=== PATIENT | female | born 1955 | race Caucasian/White ===

== ENCOUNTER → 2016-08-11 | Outpatient (CLI) | payer BC ==
[~2016-08-11] MED LIST: ADVIN50050 INH; ALBUAER2 INH; ALPR1TAB3 PO; ANF50 PO; ATOR-26 PO; CHOL1TAB76 PO; CLC100 PO; CLMTP25 TOP; CLOB-65 EXT; CRFL PO; CYM60 PO; HYDR50CA2 PO; LAMO100T16 PO; LANS30CA12 PO; LEVO-217 PO; LIDOCAINE 5% TOP; LISI5TAB3 PO; METH10TA4 PO; OXYC7.5T78 PO; RIZA10TA18 PO; RTL20 PO; SNG10 PO; SUMA5SPR5; TIOTCAP INH; TRAZ150T64 PO; TRIA0.1C20 TOP
--- NOTE | 2016-08-12 05:57 | PAP/PSG TECHNICIAN REPORT ---
[facility] Cloth Checker Polysomnogram Report Study name: None Report date: 08/12/2016 Study date: 08/11/2016 Referring Physician: Manuel MALONE M.D. Name: NENO SIDDIQUI Interpreting Physician: Harika Malone M.D. Date of : 1955 Cloth Checker: Juan De Jesus RPSGT. Sex: Female Age: 61 StudyType: PSG PAP Weight: 181 lbs 14 INCHES Height: 61 years, Height 5' 7.5" Neck Circum: BMI: 27.93 Medications: ENDOCET 5/325 MG, FLEXERIL 5 MG, PREVACID 30 MG, LEVOXYL 50 MCG, SEROQUEL 25 MG, SINGULAIR 10 MG, COZAAR 50 MG, FLONASE, RANITIDINE HCL 300 MG, LIPITOR 80 MG, PYRIDIUM 200 MG, ADVAIR DISKUS 500-50 MCG, METHYLPHENIDATE HCL ER LA 40 MG, CARAFATE 1 GM, RISPERDAL, TRAZADONE HCL 150 MG, ALPRAZOLAM 1 MG, ZOLPIDEM TARTRATE 10 MG, CYMBALTA 60 MG, LAMICTAL 100 MG Patient History PATIENT HAD A SLEEP STUDY DONE IN 2012 AND WAS HERE FOR A BIPAP ST TITRATION. SHE HAS NOT BEEN ABLE TO WEAR HER MASK DUE TO BEING UNCOMFORTABLE AND THE MASK LEAKING TOO MUCH. SHE IS HERE TODAY FOR A BIPAP ST TITRATION AND TO FIND A BETTER MASK FIT AND PRESSURE. RM 8 Parameters Monitored NPSG: E1-M2, E2-M1, Fp1-M2, Fp2-M1, F3-M2, F4-M2, F4-M1, C3-M2, C4-M2, C4-M1, O1-M2, O2-M2, O2-M1, T3-M2, T4-M1, P3-M2, P4-M1, CHIN1, CHIN2, HR, EKG, Legs, PFLOW, SNOR, FLOW, CFLOW, Tidal Volume, THOR, ABDO, SpO2, PLTH, CPRESS, ETCO2 Wave, ETCO2, pH Sleep Architecture Sleep Stages Time at Lights Off 9:29:44 PM STAGES Time (min.) TST (%) Time at Lights On 5:29:44 AM Wake 47.5 -- Total Recording Time (TRT) 480.50 min. N1 8.0 2 Total Sleep Period (TSP) 447.5 min. N2 316.0 73 Total Sleep Time (TST) 432.5min. N3 62.5 14 Awake Time 47.5 min. REM 46.0 11 Wake after Sleep Onset 15.0 min. Sleep Efficiency (SE) 90 % Sleep Onset Latency (ABAD) 32.5 min. Number of Stage 1 Shifts None Awakenings 4 Stage Changes 38 Number of REM periods 1 REM 46.0 11 REM Latency 314.0 min. NREM 386.5 89 Body Position Analysis Supine Right Left Side Prone Vertical Total Sleep Time (min.) 480.0 0.0 0.0 0.00 0.0 0.0 Total Sleep Time (%) 100% 0% 0% 0 0% N/A% Total Sleep Time REM (min.) 46.0 0.0 0.0 None 0.0 0.0 Total Sleep Time NREM (min.) 386.5 0.0 0.0 None 0.0 0.0 Intermittent Wake (min.) 47.5 0.0 0.0 None 0.0 0.0 Total Sleep Period (%) 100% None None None None None Arousals Myoclonus (PLM) * Events Count Index Events Count Index Spontaneous 17 2 Events Awake (PLMW) 19 24.0 Respiratory 0 0.3 Events Asleep w/ Arousal (PLMA) 9 1.2 PLM 9 1 Events Asleep w/o Arousal (PLMS) 18 2.5 Snoring 2 0 Total Asleep 27 3.7 Total 28 4 Total 46 6 Respiratory Analysis * CA OA MA CH H RERA Total Count 0 0 0 0 4 1 4 Index 0.0 0.0 0.0 0 0.6 0 0.7 Mean Duration 0.0 0.0 0.0 0.00 20.1 18.6 19.8 Longest Duration 0.0 0.0 0.0 0.00 0.0 18.6 22.5 Respiratory Event Summary Total Supine ~Supine Right Left Prone REM NREM Apneas Count 0 0 N/A N/A N/A N/A 0 0 Index 0.0 0 N/A N/A N/A N/A 0 0 Hypopneas (4% Desat) Count 4 4 N/A N/A N/A N/A 1 3 Index 0.6 0.6 N/A N/A N/A N/A 1.3 0.5 Apneas & All Hypopneas Count 4 4 N/A N/A N/A N/A 1 3 Index 0.6 1 N/A N/A N/A N/A 1.3 0.5 Respiratory Events (Collision Estimator+All Hyp+RERA) Count 4 5 N/A N/A N/A N/A 1 3 Index 0.7 1 N/A N/A N/A N/A 1.3 0.6 Respiratory Related Arousal Count 0 5 N/A N/A N/A N/A 0 2 Index 0.3 0 N/A N/A N/A N/A 0 0 Snoring Analysis Supine Right Left Prone REM NREM Total Snore duration 4.4 min Snores count 274 N/A N/A N/A 79 195 274 Snore mean duration 1.0 Sec Snores index 38 N/A N/A N/A 103.0 30.3 38.0 TST with snoring (%) 1.0% Desaturation Event Summary: Minimum %SpO2 Event Count Mean/Min/Max Duration(sec.) Desaturation Index % Time In Bed > 90 4 61.3 / 42.2 / 94.4 1.4 35.3 86 - 90 0 N/A 0.0 64.6 81 - 85 0 N/A 0.0 0.1 76 - 80 0 N/A 0.0 0.0 71 - 75 0 N/A 0.0 0.0 66 - 70 0 N/A 0.0 0.0 61 - 65 0 N/A 0.0 0.0 56 - 60 0 N/A 0.0 0.0 51 - 55 0 N/A 0.0 0.0 < 50 0 N/A 0.0 0.0 Total REM NREM Awake <50% 0.0 min. 0.0 min. 0.0 min. 0.0 min. 51 - 60% 0.0 min. 0.0 min. 0.0 min. 0.0 min. 61 - 70% 0.0 min. 0.0 min. 0.0 min. 0.0 min. 71 - 80% 0.0 min. 0.0 min. 0.0 min. 0.0 min. 81 - 90% 304.8 min. 19.9 min. 262.6 min. 22.3 min. 91 - 100% 166.2 min. 26.1 min. 123.9 min. 16.2 min. Average 90 91 90 90 Minimum SpO2 84 88 84 86 Desaturation Event Index 0.5 1.3 0.3 1.3 # Desat. Events below 89% 3 N/A 2 1 Time(%) with Saturation below 89% 24.5 0.0 22.7 1.7 Time(min.) with Saturation below 89% 115.2 0.2 107.1 7.9 Time (mins) REM (mins) NREM (mins) % of TST SpO2 Below 90% 3 1 N2 40.6 SpO2 Below 88% 3 0 0 16 Heart Rate Analysis Min (bpm) Max (bpm) Average (bpm) Awake 60 88 75 NREM 57 78 65 REM 62 67 64 Overall 57 78 65 Supplemental O2 Values Minimum O2 level: None Value Start Time End Time Cloth Checker Comments Mrs. Siddiqui slept in the supine positions. No cardiac arrhythmia noted. Leg movements noted. No bruxism noted. PAP initiated at an IPAP of +8 CMH2O and an EPAP of +4 CMH2O, with a rate of 10 and up-titrated to an optimal level of: IPAP +9 CMH2O, EPAP + 4CMH20 with a rate of 10 BPM, which nearly eliminated all respiratory events and snoring. A Resmed Mirage Quattro full face size small mask was used during titration Mrs. Siddiqui awoke to use the restroom 1 time during the night. Mrs. Siddiqui stated I slept as well as I do when I am in my own bed. Supplemental oxygen was added around 12:15 am at 1l/min and was increased to 2l/min. The final report will be interpreted and signed by a sleep physician. The completed physician report will then be placed in the patient medical record. Therapy Event: Therapy (cm H20) 10/31 12/01 Total Time at Pressure (min.) 287.6 192.4 TST at Pressure (min.) 240.1 192.4 # Periods 1 1 Sleep Onset (min.) 32.5 0.0 REM Onset (min.) N/A 58.9 Sleep Efficiency % 83 100 Wakefulness (%) 16.5 0.0 Wakefulness (min.) 47.5 0.0 NREM 1 (%) 1.9 1.3 NREM 1 (min.) 5.5 2.5 NREM 2 (%) 59.8 74.8 NREM 2 (min.) 172.1 143.9 NREM 3 (%) 21.7 0.0 NREM 3 (min.) 62.5 0.0 REM (%) 0.0 23.9 REM (min.) 0.0 46.0 # Arousals 20 8 Arousal Index 5.0 2.5 # Snore 81 193 Snore Index 20.2 60.2 AHI 0.5 0.6 AHI Supine 0.5 0.6 AHI Non-Supine N/A N/A NREM AHI 0.5 0.4 REM AHI N/A 1.3 RDI 0.7 0.6 # Obstructive 0 0 # Central Ap 0 0 # Mixed 0 0 # Hypopneas 2 2 RERAS 1 0 Total Respiratory Events 3 2 Time Below SpO2 89.00% (min.) 106.1 1.3 Mean NREM SpO2 (%) 89 91 Mean REM SpO2 (%) N/A 91 Mean Sleep SpO2 (%) 89 91 Min NREM SpO2 (%) 84 86 Min REM SpO2 (%) N/A 88 Position Supine (min.) 240.1 192.4 Position Non-supine (min.) 0.0 0.0 LM Index Sleep 3.7 3.7 LM Index NREM 3.7 4.5 LM Index REM N/A 1.3 Mean Heart Rate (bpm) 68 62 Min Heart Rate (bpm) 60 57
--- NOTE | 2016-08-21 00:44 | POLYSOMNOGRAPH REPORT ---
REFERRING PERSON: Dr. Stuart Malone. MEAT SMOKER: Juan De Jesus. Ms. Browning is a 61-year-old female, who was previously diagnosed with mild central obstructive sleep apnea due to chronic pain medication. Those medications have been weaned since then. However, she remains on p.r.n. oxycodone. She has tried and failed CPAP, BIPAP and BiPAP ST in the past. She returns to the sleep lab, as she is willing to give BiPAP ST another try. Her [place] sleepiness scale score on the evening of this study is not recorded. BMI is 27.93. Following the technical and digital specifications of the [place] [employer] (AASM), a standard diagnostic polysomnogram was performed, monitoring EEG, EOG, EMG (chin and leg deviations), oxygen saturation, body position, digital video, respiratory effort and airflow. The sleep Stage and Event scoring was based on the AASM Manual for the Scoring of Sleep and Associated Events, 2007 edition. Apneas are defined as a drop in the peak thermal sensor excursion by >90% of baseline for at least 10 seconds. Hypopneas were scored using the 4% oxygen desaturation rule (4A-Medicare) and a decrease in the nasal pressure excursions by >30% of baseline for at least 10 seconds. Respiratory effort-related arousal (RERA) is defined as a sequence of breaths lasting at least 10 seconds characterized by increasing respiratory effort or flattening of the nasal pressure waveform leading to an arousal from sleep when the sequence of breaths does not meet criteria for an apnea or hypopnea. Apnea Hypopnea index (AHI) is defined as the number of apneas and hypopneas occurring in an hour of sleep. Respiratory disturbance index (RDI) is defined as the number of apneas, hypopneas, and RERAs occurring in an hour of sleep. Ms. Browning total sleep period time was 447.5 minutes. Total sleep time was 432.5 minutes. Sleep efficiency is 90%. Latency to sleep onset was 32.5 minutes. Wake after sleep onset was 15 minutes. Total non-REM sleep time was 386.5 minutes. She spent 2% of that time in N1 sleep, 73% in N2 sleep and 14% in N3 sleep. REM latency was 314 minutes. Total REM sleep time was 46 minutes or 11% of total sleep time. There were 28 cortical arousals from sleep. Seventeen of these arousals were spontaneous, 9 were due to periodic limb movements of sleep and 2 were due to snoring. There were 27 periodic limb movements noted on this test. Limb movement index was 3.7. Limb movement with arousal index was 1.2. There were no central obstructive or mixed apneas noted on this titration, there were 4 hypopneas and 1 RERA. These were all obstructive hypopneas. Apnea-hypopnea index was 0.6. There were 274 snoring events. Total sleep time with snoring was 1%. Mean saturation was borderline low at 90%. Lowest recorded saturation was 84%. Saturations were less than 89 for 115.2 minutes of recorded time. There was no cardiac ectopy noted on this study. On this test, heart rate ranged from a low of 57 beats per minute to a high of 78 beats per minute. As stated above, this was a BiPAP ST titration study. It commenced on an inspiratory pressure of 8 and expiratory pressure of 4 with a backup rate of 10 and was titrated to a pressure of 9/4 with a backup rate of 10. She was observed on a pressure of 9/4 with a backup rate of 10 for 192.4 minutes of sleep time. Forty-six of those minutes were spent in supine REM sleep. AHI and RDI on this pressure were both 0.6. At 12:15 a.m., this patient had an AHI of less than 5, but had significant nocturnal hypoxemia. One liter of oxygen was started and titrated to two over the remainder of the night. IMPRESSION AND PLAN: Successful BiPAP ST titration in this patient with mild central sleep apnea. I would recommend BiPAP ST at 9/4 with a backup rate of 10 and 2 liters of supplemental oxygen for nocturnal hypoxemia that did not resolve as sleep-disordered breathing resolved.
== END | disposition home or self-care (01) ==
LOC: C.NEUR 20:00
PROVIDERS: ATTEND Family Medicine
DX: G47.31 Primary central sleep apnea (principal); G47.33 Obstructive sleep apnea (adult) (pediatric); G47.34 Idiopathic sleep related nonobstructive alveolar hypoventilation

== ENCOUNTER → 2017-03-16 | Outpatient (CLI) | payer BC ==
--- NOTE | 2017-03-17 06:08 | PAP/PSG TECHNICIAN REPORT ---
[facility] Manager Home Polysomnogram Report Study name: None Report date: 03/17/2017 Study date: 03/16/2017 Referring Physician: DIEGO Leonard Name: NENO SIDDIQUI Interpreting Physician: Sumanth Jolley M.D. Date of : 1955 Manager Home: [facility]. Sex: Female Age: 61 StudyType: PSG PAP Weight: 191 lbs Height: 61 years, Height 5' 7" BMI: 29.91 Medications: oloatadine 0.1%, Losartan 50 mg, Singulair 10 mg, Inderal 10 mg, Dkyehies-Vvsckypif-IQ opthammic suspension, Oxycodone-Acetaminpphen 5-325 mg, Carafate 1gm/10 ML, Prevacid 30 mg, Ranitidine 300 mg, Vitamin D3 Lidocaine 5%, Risperdal 0.25 mg, Trazodone 150 mg, Advair Diskus 500-50 MCG, Fluticasone 50 MCG/ACT, Atorvastatin 50 mg, Alendronate 70 mg, Levothyroxine 50 mcg, Methylphenidate 20 mg, Voltaren 1%, Cymbalta 60 mg, Clomipramine 50 mg, Patient History 61 yr. old female here for an updated BIPAP s/t study. Patient is also on 2 lpm 02. Study is to start at 12/6 with a backup rate of 10 room air. Parameters Monitored NPSG: E1-M2, E2-M1, Fp1-M2, Fp2-M1, F3-M2, F4-M2, F4-M1, C3-M2, C4-M2, C4-M1, O1-M2, O2-M2, O2-M1, T3-M2, T4-M1, P3-M2, P4-M1, CHIN1, CHIN2, HR, EKG, Legs, PFLOW, SNOR, FLOW, CFLOW, Tidal Volume, THOR, ABDO, SpO2, PLTH, CPRESS, ETCO2 Wave, ETCO2, pH Sleep Architecture Sleep Stages Time at Lights Off 9:40:47 PM STAGES Time (min.) TST (%) Time at Lights On 5:52:17 AM Wake 56.0 -- Total Recording Time (TRT) 492.00 min. N1 15.5 4 Total Sleep Period (TSP) 461.0 min. N2 314.0 72 Total Sleep Time (TST) 435.5min. N3 89.0 20 Awake Time 56.0 min. REM 17.0 4 Wake after Sleep Onset 25.5 min. Sleep Efficiency (SE) 89 % Sleep Onset Latency (ABAD) 30.5 min. Number of Stage 1 Shifts None Awakenings 7 Stage Changes 71 Number of REM periods 1 REM 17.0 4 REM Latency 323.5 min. NREM 418.5 96 Body Position Analysis Supine Right Left Side Prone Vertical Total Sleep Time (min.) 491.4 0.0 0.0 0.00 0.0 0.1 Total Sleep Time (%) 100% 0% 0% 0 0% N/A% Total Sleep Time REM (min.) 17.0 0.0 0.0 None 0.0 0.0 Total Sleep Time NREM (min.) 418.5 0.0 0.0 None 0.0 0.0 Intermittent Wake (min.) 55.9 0.0 0.0 None 0.0 0.1 Total Sleep Period (%) 100% None None None None None Arousals Myoclonus (PLM) * Events Count Index Events Count Index Spontaneous 3 0 Events Awake (PLMW) 35 37.5 Respiratory 6 1.0 Events Asleep w/ Arousal (PLMA) 32 4.4 PLM 31 4 Events Asleep w/o Arousal (PLMS) 92 12.7 Snoring 7 1 Total Asleep 124 17.1 Total 47 6 Total 159 19 Respiratory Analysis * CA OA MA CH H RERA Total Count 1 0 0 0 55 0 56 Index 0.1 0.0 0.0 0 7.6 0 7.7 Mean Duration 12.2 0.0 0.0 0.00 23.8 0.0 23.6 Longest Duration 12.2 0.0 0.0 0.00 0.0 0.0 34.3 Respiratory Event Summary Total Supine ~Supine Right Left Prone REM NREM Apneas Count 1 1 N/A N/A N/A N/A 0 1 Index 0.1 0 N/A N/A N/A N/A 0 0 Hypopneas (4% Desat) Count 55 55 N/A N/A N/A N/A 3 52 Index 7.6 7.6 N/A N/A N/A N/A 10.6 7.5 Apneas & All Hypopneas Count 56 56 N/A N/A N/A N/A 3 53 Index 7.7 8 N/A N/A N/A N/A 10.6 7.6 Respiratory Events (Advertising Solicitor+All Hyp+RERA) Count 56 56 N/A N/A N/A N/A 3 53 Index 7.7 8 N/A N/A N/A N/A 10.6 7.6 Respiratory Related Arousal Count 6 56 N/A N/A N/A N/A 0 7 Index 1.0 1 N/A N/A N/A N/A 0 1 Snoring Analysis Supine Right Left Prone REM NREM Total Snore duration 9.3 min Snores count 486 N/A N/A N/A 1 485 486 Snore mean duration 1.2 Sec Snores index 67 N/A N/A N/A 3.5 69.5 67.0 TST with snoring (%) 2.1% Desaturation Event Summary: Minimum %SpO2 Event Count Mean/Min/Max Duration(sec.) Desaturation Index % Time In Bed > 90 70 20.7 / 6.5 / 60.0 10.0 87.7 86 - 90 3 14.2 / 6.5 / 22.8 3.1 12.2 81 - 85 0 N/A 0.0 0.1 76 - 80 0 N/A 0.0 0.0 71 - 75 0 N/A 0.0 0.0 66 - 70 0 N/A 0.0 0.0 61 - 65 0 N/A 0.0 0.0 56 - 60 0 N/A 0.0 0.0 51 - 55 0 N/A 0.0 0.0 < 50 0 N/A 0.0 0.0 Total REM NREM Awake <50% 0.0 min. 0.0 min. 0.0 min. 0.0 min. 51 - 60% 0.0 min. 0.0 min. 0.0 min. 0.0 min. 61 - 70% 0.0 min. 0.0 min. 0.0 min. 0.0 min. 71 - 80% 0.0 min. 0.0 min. 0.0 min. 0.0 min. 81 - 90% 59.2 min. 0.0 min. 54.7 min. 4.5 min. 91 - 100% 421.4 min. 17.0 min. 363.8 min. 40.6 min. Average 92 94 92 92 Minimum SpO2 81 91 85 81 Desaturation Event Index 8.5 10.6 9.5 2.1 # Desat. Events below 89% 6 N/A 5 1 Time(%) with Saturation below 89% 0.3 0.0 0.2 0.1 Time(min.) with Saturation below 89% 1.5 0.0 0.9 0.6 Time (mins) REM (mins) NREM (mins) % of TST SpO2 Below 90% 46 N/A N46 2.3 SpO2 Below 88% 2 0 0 0 Heart Rate Analysis Min (bpm) Max (bpm) Average (bpm) Awake 55 265 65 NREM 52 71 57 REM 55 61 57 Overall 52 71 57 Supplemental O2 Values Minimum O2 level: None Value Start Time End Time Manager Home Comments Mrs. Siddiqui slept in the supine position. No cardiac arrhythmia. PLMs noted. Hypopneas were seen often a limb movement. No bruxism noted. PAP initiated at an IPAP of +12 CMH2O and an EPAP of +6 CMH2O with a rate of 10 bpm (per order) up-titrated to a level of: IPAP +19 CMH2O, EPAP + 9CMH20 BiFlex 1 with a rate of 10 BPM room air, which nearly eliminated all respiratory events and snoring. A small ResMed Airfit F20, was used during titration. Mrs. Siddiqui awoke to use the restroom two times during the night. Mrs. Siddiqui stated, "(Example) I did not sleep as well as I do when I am in my own bed". The final report will be interpreted and signed by a sleep physician. The completed physician report will then be placed in the patient medical record. Therapy Event: Therapy (cm H20) 03/04 136 14/6 15/6 16 1714/11 Total Time at Pressure (min.) 56.3 41.6 101.4 18.6 58.0 42.6 43.8 100.2 29.0 TST at Pressure (min.) 25.8 41.6 88.9 18.6 57.5 42.1 43.3 88.7 29.0 # Periods 1 1 1 1 1 1 1 1 1 Sleep Onset (min.) 30.5 0.0 0.0 0.0 0.0 0.0 0.0 0.0 0.0 REM Onset (min.) N/A N/A N/A N/A N/A N/A 35.4 0.0 N/A Sleep Efficiency % 45 100 87 100 99 98 98 88 100 Wakefulness (%) 54.1 0.0 12.3 0.0 0.9 1.2 1.1 11.5 0.0 Wakefulness (min.) 30.5 0.0 12.5 0.0 0.5 0.5 0.5 11.5 0.0 NREM 1 (%) 2.7 2.4 2.0 0.0 1.7 2.3 1.1 7.0 5.2 NREM 1 (min.) 1.5 1.0 2.0 0.0 1.0 1.0 0.5 7.0 1.5 NREM 2 (%) 37.9 55.5 51.2 86.6 73.3 74.0 61.6 72.9 94.8 NREM 2 (min.) 21.3 23.1 51.9 16.1 42.5 31.5 27.0 73.0 27.5 NREM 3 (%) 5.3 42.1 34.5 13.4 24.1 22.4 17.0 0.0 0.0 NREM 3 (min.) 3.0 17.5 35.0 2.5 14.0 9.6 7.4 0.0 0.0 REM (%) 0.0 0.0 0.0 0.0 0.0 0.0 19.1 8.6 0.0 REM (min.) 0.0 0.0 0.0 0.0 0.0 0.0 8.4 8.6 0.0 # Arousals 5 10 7 3 7 3 2 6 4 Arousal Index 11.6 14.4 4.7 9.7 7.3 4.3 2.8 4.1 8.3 # Snore 10 40 162 23 47 27 18 147 12 Snore Index 23.2 57.7 109.4 74.2 49.0 38.5 24.9 99.5 24.9 AHI 9.3 11.5 6.8 12.9 6.3 8.5 15.2 4.1 2.1 AHI Supine 9.3 11.5 6.8 12.9 6.3 8.5 15.2 4.1 2.1 AHI Non-Supine N/A N/A N/A N/A N/A N/A N/A N/A N/A NREM AHI 9.3 11.5 6.8 12.9 6.3 8.5 13.7 4.5 2.1 REM AHI N/A N/A N/A N/A N/A N/A 21.5 0.0 N/A RDI 9.3 11.5 6.8 12.9 6.3 8.5 15.2 4.1 2.1 # Obstructive 0 0 0 0 0 0 0 0 0 # Central Ap 0 0 1 0 0 0 0 0 0 # Mixed 0 0 0 0 0 0 0 0 0 # Hypopneas 4 8 9 4 6 6 11 6 1 RERAS 0 0 0 0 0 0 0 0 0 Total Respiratory Events 4 8 10 4 6 6 11 6 1 Time Below SpO2 89.00% (min.) 0.4 0.1 0.2 0.0 0.0 0.1 0.0 0.1 0.0 Mean NREM SpO2 (%) 91 91 92 92 92 92 93 92 92 Mean REM SpO2 (%) N/A N/A N/A N/A N/A N/A 94 94 N/A Mean Sleep SpO2 (%) 91 91 92 92 92 92 93 92 92 Min NREM SpO2 (%) 85 88 85 90 89 88 89 88 89 Min REM SpO2 (%) N/A N/A N/A N/A N/A N/A 91 91 N/A Position Supine (min.) 25.8 41.6 88.9 18.6 57.5 42.1 43.3 88.7 29.0 Position Non-supine (min.) 0.0 0.0 0.0 0.0 0.0 0.0 0.0 0.0 0.0 LM Index Sleep 13.9 27.4 16.9 25.8 26.1 12.8 4.2 14.2 16.6 LM Index NREM 13.9 27.4 16.9 25.8 26.1 12.8 3.4 15.0 16.6 LM Index REM N/A N/A N/A N/A N/A N/A 7.2 7.0 N/A Mean Heart Rate (bpm) 63 60 57 58 57 56 56 56 58 Min Heart Rate (bpm) 57 56 53 55 55 54 53 52 54
--- NOTE | 2017-03-17 10:07 | POLYSOMNOGRAPH REPORT ---
SUBJECTIVE: 61-year-old female with a BMI of 29.9 referred by DIEGO Cotton. She is on BiPAP and oxygen at home. SLEEP ARCHITECTURE: Total sleep period was 461 minutes. Total sleep time was 435.5 minutes divided between 418.5 minutes of non-REM sleep and 17 minutes of REM sleep. Sleep onset latency was 30.5 minutes. REM latency was delayed at 322.5 minutes. Sleep efficiency was 89%. Wake after sleep onset was 25.5 minutes. Sleep consisted of stage N1 4%, stage N2 72%, stage N3 20%, and REM 4%. AROUSAL DATA: 47 arousals were recorded for an index of 6 per hour. PLM DATA: 124 limb movements during sleep were noted for an index of 17.1 per hour with arousal index of 4.4 per hour. RESPIRATORY DATA: AHI was 7.7. There was 1 central apneic episode, 12.2 seconds in duration. There were 55 hypopneic episodes with the mean duration of 22.8 seconds. OXIMETRY DATA: Transient hypoxemia was seen. Oxygen laura was 85%. Mean saturation was 92%. Time below 88% was 2 minutes. EKG: Heart rates ranged from 52-71 beats per minute. No arrhythmias were noted. PULP MIXER'S COMMENTS: The patient slept supine. She was started on BiPAP 12/6 with a backup rate of 10 and was titrated up to a final pressure setting of BiPAP inspiratory pressure 19, expiratory pressure 9, Bi-Flex 1 with a backup rate of 10 breaths per minute. She used a small ResMed AirFit F20 mask. At her final pressure setting, the patient slept for 29 minutes with an AHI of 2.1. There was no evidence of hypoxemia at her final BiPAP pressure. IMPRESSION: Obstructive sleep apnea/hypopnea corrected with BiPAP 19/9, Bi-Flex 1 with a backup rate of 10 breaths per minute utilizing a small ResMed AirFit 20 mask. RECOMMENDATIONS: The patient's BIPAP should be adjusted to the above noted pressure setting. MTDD
== END | disposition home or self-care (01) ==
LOC: C.NEUR 20:00
PROVIDERS: ATTEND Nurse Practitioner Family
DX: G47.33 Obstructive sleep apnea (adult) (pediatric) (principal)

== ENCOUNTER 2017-04-20 15:46 | Emergency (ER) | payer BC ==
[~2017-04-20] VITALS: Ht 170.2 cm; Wt 87.1 kg
[2017-04-20 16:12] VITALS: TEMP 36.9; Ht 170.2 cm; Wt 87.1 kg
[2017-04-20] MEDS ORDERED: SODIUM CHLORIDE 0.9% 1000ML 1,000 ML IV STA (18:17)
[2017-04-20] MEDS ORDERED: ONDANSETRON INJ 2 MG/ML 2 ML VIAL IV STA (18:17)
[2017-04-20] MEDS ORDERED: MoRPHine SULFATE 4 MG/ML 1 ML CARP\\VIAL IV STA (18:17)
--- NOTE | 2017-04-20 18:33 | DIAGNOSTIC IMAGING REPORT ---
CHEST ONE VIEW PORTABLE CLINICAL HISTORY: dizzy mental status change COMPARISON STUDY: 01/30/2015 FINDINGS: Chronic pleural reactive changes left base. Lungs otherwise are clear. Right hemidiaphragm is smooth. IMPRESSION: Chronic change. No acute process. The above report was generated using voice recognition software. It may contain grammatical, syntax or spelling errors. Electronically signed by: Santiago Gore M.D. 04/20/2017 6:32 PM Dictated Date/Time: 04/20/2017 6:31 PM
[2017-04-20 18:55] LABS: BASO % 0.4 %; BASO ABS # 0.05 K/uL (0-0.2); EOS % 3.9 %; EOS ABS # 0.44 K/uL (0-0.5); HEMATOCRIT 38.1 % (37-47); HEMOGLOBIN 12.7 g/dL (12.0-16.0); IG# 0.09 K/uL (0.00-0.02); LYMPH % 23.1 %; LYMPH ABS # 2.57 K/uL (1.2-3.4); MEAN CELL VOLUME 88.2 fL (80-100); MEAN CORPUSCULAR HEMOGLOBIN 29.4 pg (25-34); MEAN CORPUSCULAR HGB CONC 33.3 g/dl (32-36); MEAN PLATELET VOLUME 9.7 fL (7.4-10.4); MONO % 7.5 %; MONO ABS # 0.84 K/uL (0.11-0.59); NEUT % 64.3 %; NEUT ABS # 7.15 K/uL (1.4-6.5); PLATELET COUNT 242 K/uL (130-400); RED CELL DISTRIBUTION WIDTH CV 13.7 % (11.5-14.5); RED CELL DISTRIBUTION WIDTH SD 43.7 fL (36.4-46.3); WHITE BLOOD COUNT 11.14 K/uL (4.8-10.8)
[2017-04-20 19:34] LABS: CALCIUM 9.3 mg/dl (8.5-10.1); CREATININE 1.13 mg/dl (0.60-1.20); POTASSIUM 4.2 mmol/L (3.5-5.1); TOTAL PROTEIN 7.5 gm/dl (6.4-8.2)
--- NOTE | 2017-04-20 20:36 | DIAGNOSTIC IMAGING REPORT ---
HEAD WITHOUT CONTRAST (CT) CT DOSE: 537.48 mGy.cm HISTORY: BORDEN dizzy TECHNIQUE: Multiaxial CT images of the head were performed without the use of intravenous contrast. A dose lowering technique was utilized adhering to the principles of ALARA. Comparison: None. Findings: The paranasal sinuses and mastoid air cells are clear. The calvarium and skull base are intact. The ventricles and sulci are within normal limits. There is no mass, hematoma, midline shift, or acute infarct. Impression: No acute intracranial abnormality. The above report was generated using voice recognition software. It may contain grammatical, syntax or spelling errors. Electronically signed by: Santiago Gore M.D. 04/20/2017 8:35 PM Dictated Date/Time: 04/20/2017 8:33 PM
[2017-04-20 21:20] VITALS: BP 137/77; PULSE 80; O2SAT 95
--- NOTE | 2017-04-20 23:35 | EMERGENCY ROOM VISIT NOTE ---
History Report prepared by Lindsay: Phil Rosenthal Under the Supervision of: Dr. Russel Vasquez D.O. First contact with patient: 18:02 Chief Complaint: HYPERTENSION Stated Complaint: BLOOD PRESSURE 191/114 History of Present Illness The patient is a 61 year old female who presents to the Emergency Room with complaints of constant hypertension beginning 3 days ago. The patient states that her blood pressure was being monitored since her original hypertensive episode. She notes that her blood pressure was at 191/114 today, prompting her to come to the emergency room. She also complains of dizziness, a "splitting" headache, and tingling in her toes all starting today. She reports that her headache makes her feel like the room is spinning and is located in the back of her head and in her temples. The patient states that she took 600mg of ibuprofen today with mild relief of her symptoms. She notes that she is on blood pressure medication but is not on any blood thinners. She notes that she has a history of kidney disease. Pt denies change in vision, fevers, chest pain , shortness of breath, nausea, vomiting, diarrhea, pain with urination, cough, runny nose, and melena. Source of History: patient Onset: 3 days ago Position: other (global) Symptom Intensity: 191/114 Quality: other (hypertension) Timing: constant Associated Symptoms: + headache ("splitting"), No fevers, No cough, No chest pain, No SOB, No nausea, No vomiting, No diarrhea, No urinary symptoms Note: She also complains of dizziness and tingling in her toes. Review of Systems See HPI for pertinent positives & negatives. A total of 10 systems reviewed and were otherwise negative. Past Medical & Surgical Medical Problems: (1) Kidney disease Family History No pertinent family history stated. Social History Smoking Status: Never Smoker Marital Status: Housing Status: lives with family Occupation Status: disabled Current/Historical Medications Scheduled Alprazolam (Xanax), 1 MG PO QID PRN Atorvastatin (Lipitor), 80 MG PO HS Cholecalciferol (D 1999), 2,000 UNIT PO DAILY Clomipramine Hcl (Anafranil), 50 MG PO HS Docusate Sodium (Colace *), 100 MG PO BID Duloxetine Hcl (Cymbalta *), 120 MG PO DAILY Estradiol (Climara), 1 PATCH TOP CQWK Fluticasone Prop/Salmeterol (Advair Diskus 500-50 Mcg/Dose), 1 PUFF INH BID Hydroxyzine Pamoate (Vistaril), 50 MG PO BID Lamotrigine (Lamictal), 100 MG PO HS Lansoprazole (Prevacid), 30 MG PO BID Levothyroxine (Levothroid), 0.05 MG PO DAILY Lisinopril (Zestril), 5 MG PO DAILY Methylphenidate (Ritalin), 10 MG PO DAILY Methylphenidate (Ritalin), 20 MG PO DAILY Montelukast Sod (Montelukast Sodium), 10 MG PO DAILY Oxycodone/Acetaminophen 5MG/325MG (Percocet 5MG/325MG), 1-2 TABLETS PO TID Rizatriptan Benzoate (Maxalt), 10 MG PO PRN Sucralfate (Carafate), 10 ML PO ACHS Tiotropium [place] (Spiriva Handihaler), 1 CAP INH DAILY Trazodone Hcl (Desyrel), 200 MG PO HS Scheduled PRN Albuterol (Ventolin), 2 PUFFS INH Q4 PRN for Wheezing Clobetasol Propionate 0.05% (Temovate 0.05%), 1 APPLN EXT DAILY PRN for Itching Sumatriptan (Imitrex), 1 SPRAY NA BID PRN for Headache Triamcinolone Acet 0.1% (Aristocort 0.1%), 1 APPLN TOP DAILY PRN for Itching [Lidocaine 5% Ex Oint], 1 APPLN TOP DAILY PRN for Pain Allergies Coded Allergies: Clindamycin (Verified Allergy, Intermediate, RASH, 12/19/13) Penicillins (Verified Allergy, Intermediate, HIVES, 12/19/13) Doxycycline (Verified Adverse Reaction, Severe, pancreatitis, 12/19/13) Physical Exam Vital Signs Date Time Temp Pulse Resp B/P (MAP) Pulse Ox O2 Delivery O2 Flow Rate FiO2 04/20/17 21:20 80 18 137/77 95 04/20/17 19:42 81 18 153/108 94 Room Air 04/20/17 18:09 82 185/120 95 Room Air 04/20/17 16:12 36.9 97 18 158/102 95 Room Air Physical Exam GENERAL: Sitting up in bed, alert, well appearing, well nourished, no distress, non-toxic, dizziness that worsens with head movement. EYE EXAM: normal conjunctiva. PERRL and EOM's intact. OROPHARYNX: no exudate, no erythema, lips, buccal mucosa, and tongue normal and mucous membranes are moist NECK: supple, no nuchal rigidity, no adenopathy, non-tender LUNGS: Clear to auscultation. Normal chest wall mechanics HEART: no murmurs, S1 normal and S2 normal ABDOMEN: abdomen soft, non-tender, normo-active bowel sounds, no masses, no rebound or guarding. BACK: Back is symmetrical on inspection and there is no deformity, no midline tenderness, no CVA tenderness. SKIN: no rashes and no bruising UPPER EXTREMITIES: upper extremities are grossly normal. LOWER EXTREMITIES: No pitting edema. NEURO EXAM: Normal sensorium, cranial nerves II-XII intact, normal speech, no weakness of arms, no weakness of legs. No drift. Finger to nose intact. Gross sensation intact. Rapid alternating movements of upper extremities intact. Medical Decision & Procedures ER Provider Diagnostic Interpretation: Radiology results as stated below per my review and the radiologist's interpretation: HEAD WITHOUT CONTRAST (CT) CT DOSE: 537.48 mGy.cm HISTORY: BORDEN dizzy TECHNIQUE: Multiaxial CT images of the head were performed without the use of intravenous contrast. A dose lowering technique was utilized adhering to the principles of ALARA. Comparison: None. Findings: The paranasal sinuses and mastoid air cells are clear. The calvarium and skull base are intact. The ventricles and sulci are within normal limits. There is no mass, hematoma, midline shift, or acute infarct. Impression: No acute intracranial abnormality. The above report was generated using voice recognition software. It may contain grammatical, syntax or spelling errors. Electronically signed by: Santiago Gore M.D. 04/20/2017 8:35 PM CHEST ONE VIEW PORTABLE CLINICAL HISTORY: dizzy mental status change COMPARISON STUDY: 01/30/2015 FINDINGS: Chronic pleural reactive changes left base. Lungs otherwise are clear. Right hemidiaphragm is smooth. IMPRESSION: Chronic change. No acute process. The above report was generated using voice recognition software. It may contain grammatical, syntax or spelling errors. Electronically signed by: Santiago Gore M.D. 04/20/2017 6:32 PM Laboratory Results 04/20/17 18:44 Red Blood Count 4.32, Mean Corpuscular Volume 88.2, Mean Corpuscular Hemoglobin 29.4, Mean Corpuscular Hemoglobin Concent 33.3, Mean Platelet Volume 9.7, Neutrophils (%) (Auto) 64.3, Lymphocytes (%) (Auto) 23.1, Monocytes (%) (Auto) 7.5, Eosinophils (%) (Auto) 3.9, Basophils (%) (Auto) 0.4, Neutrophils # (Auto) 7.15, Lymphocytes # (Auto) 2.57, Monocytes # (Auto) 0.84, Eosinophils # (Auto) 0.44, Basophils # (Auto) 0.05 04/20/17 18:44 Test 04/20/17 18:44 White Blood Count 11.14 K/uL (4.8-10.8) Red Blood Count 4.32 M/uL (4.2-5.4) Hemoglobin 12.7 g/dL (12.0-16.0) Hematocrit 38.1 % (37-47) Mean Corpuscular Volume 88.2 fL (80-100) Mean Corpuscular Hemoglobin 29.4 pg (25-34) Mean Corpuscular Hemoglobin Concent 33.3 g/dl (32-36) Platelet Count 242 K/uL (130-400) Mean Platelet Volume 9.7 fL (7.4-10.4) Neutrophils (%) (Auto) 64.3 % Lymphocytes (%) (Auto) 23.1 % Monocytes (%) (Auto) 7.5 % Eosinophils (%) (Auto) 3.9 % Basophils (%) (Auto) 0.4 % Neutrophils # (Auto) 7.15 K/uL (1.4-6.5) Lymphocytes # (Auto) 2.57 K/uL (1.2-3.4) Monocytes # (Auto) 0.84 K/uL (0.11-0.59) Eosinophils # (Auto) 0.44 K/uL (0-0.5) Basophils # (Auto) 0.05 K/uL (0-0.2) RDW Standard Deviation 43.7 fL (36.4-46.3) RDW Coefficient of Variation 13.7 % (11.5-14.5) Immature Granulocyte % (Auto) 0.8 % Immature Granulocyte # (Auto) 0.09 K/uL (0.00-0.02) Anion Gap 9.0 mmol/L (3-11) Est Creatinine Clear Calc Drug Dose 59.3 ml/min Estimated GFR () 60.7 Estimated GFR (Non- 52.4 BUN/Creatinine Ratio 15.5 (10-20) Calcium Level 9.3 mg/dl (8.5-10.1) Total Bilirubin 0.2 mg/dl (0.2-1) Direct Bilirubin mg/dl (0-0.2) Aspartate Amino Transf (AST/SGOT) 33 U/L (15-37) Alanine Aminotransferase (ALT/SGPT) 53 U/L (12-78) Alkaline Phosphatase 79 U/L (45-117) Troponin I < 0.015 ng/ml (0-0.045) Total Protein 7.5 gm/dl (6.4-8.2) Albumin 4.0 gm/dl (3.4-5.0) Chemistry Specimen Hemolysis Laboratory results per my review. Medications Administered Medications (Trade) Dose Ordered Sig/Sonya Route Start Time Stop Time Status Last Admin Dose Admin Sodium Chloride 1,000 ml @ 999 mls/hr Q1H1M STAT IV 04/20/17 18:17 04/20/17 19:17 DC 04/20/17 18:37 999 MLS/HR Morphine Sulfate (MoRPHine SULFATE INJ) 4 mg NOW STAT IV 04/20/17 18:17 04/20/17 18:18 DC 04/20/17 18:36 4 MG Ondansetron HCl (Zofran Inj) 4 mg NOW STAT IV 04/20/17 18:17 04/20/17 18:18 DC 04/20/17 18:36 4 MG ECG Indication: other (hypertension) Rate (beats per minute): 84 Rhythm: sinus rhythm Findings: no acute ischemic change, no ectopy, other (Normal axis) ED Course ED COURSE: Vital signs were reviewed and showed the patient to be situationally hypertensive. The patients medical record was reviewed The above diagnostic studies were performed and reviewed. ED treatments and interventions as stated above. 180: The patient was evaluated in room B10. A complete history and physical examination was performed. 1816: Zofran Inj 4mg IV, Morphine Sulfate 4mg IV, Sodium Chloride 1000 ml @ 999 mls/hr IV 2120: Upon reevaluation, the patient is stable. I discussed my findings with the patient and she understands and agrees with the treatment plan. Based on the patients age, coexisting illnesses, exam and lab findings the decision to treat as an outpatient was made. The patient remained stable while under my care. The patient appeared well at the time of discharge. Medical Decision Differential Diagnosis includes but is not limited to headache, tension headache , cluster headache, migraine, subarachnoid hemorrhage, meningitis, mass, central venous thrombus, concussion, trauma and epidural/subdural hemorrhage. Patient is a 61-year-old female who presents to ER for hypertension. She notes that she does have an associated headache which came on gradually grossly worsened today. This is not the worse headache of her life. No fevers. Completely neurologically intact. No cerebellar signs. Able to ambulate without difficulty. CBC all BMP, LFTs, bilirubin and troponin was negative. Symptoms/dizziness was reproducible with movement of head. CT head was unremarkable. EKG as benign as well. Systolic blood pressures trended down to the 150s. She was given a dose of IV morphine for headache. She felt significant better. She was discharged to follow-up with her PCP for her hypertension. No signs of meningitis or encephalitis on exam. Nothing to suggest a subarachnoid hemorrhage. Discussed with Pt concerning signs and symptoms to watch out for. Pt was instructed to follow up with their PCP and discussed with the patient their option to return to the ED at anytime for persistent or worsening symptoms. The appropriate anticipatory guidance and out- patient management, including indications for return to the emergency department , were explained at length to the patient and understood. Medication Reconcilliation Current Medication List: was personally reviewed by me Blood Pressure Screening Patient's blood pressure: Elevated blood pressure Blood pressure disposition: Elevated BP felt to be situational Impression Primary Impression: Hypertension Additional Impression: Headache Scribe Attestation The scribe's documentation has been prepared under my direction and personally reviewed by me in its entirety. I confirm that the note above accurately reflects all work, treatment, procedures, and medical decision making performed by me. Departure Information Dispostion Home / Self-Care Referrals Kristina Stout M.D. (PCP) Forms HOME CARE DOCUMENTATION FORM, IMPORTANT VISIT INFORMATION, WORK / SCHOOL INSTRUCTIONS Patient Instructions My [facility] Additional Instructions Please follow up with your primary care doctor with in the next 24 hours. Any worsening of your symptoms, please return to the ED immediately. This includes any fevers greater than 100.4, worsening pain, chest pain, shortness breath, persistent nausea, vomiting, unable to eat or drink, or any other concerning signs or symptoms from your standpoint. Please follow up with your primary care doctor in regards to your blood pressure. Problem Qualifiers Primary Impression: Hypertension Hypertension type: unspecified Qualified Codes: I10 - Essential (primary) hypertension Additional Impression: Headache Headache type: unspecified Headache chronicity pattern: unspecified pattern Intractability: not intractable Qualified Codes: R51 - Headache
== END 2017-04-20 21:20 | disposition home or self-care (01) ==
LOC: C.EDB 15:48
DX: I10 Essential (primary) hypertension (principal); R51 Headache; N28.9 Disorder of kidney and ureter, unspecified

== ENCOUNTER 2018-09-15 07:00 | Inpatient (IN) ==
--- NOTE | 2018-08-19 11:20 | Anesthesiology Consultation ---
Date of Service August 19, 2018 Assessment & Plan (1) Encounter for pre-operative examination: - No previous anesthesia records. Chart Review Chart Review: Acceptable Risk for Surgery and Patient seen in Pre Admission Testing Consults Requested medical -Note sent to PCP re: UTI and abnormal labs (08/20) -Patient was seen by PCP on 08/26 to be evaluated for abnormal testing. She was treated for UTI with antibiotics and was advised to decrease fluid intake. Patient had repeat urine and labs ~1 week later, and a note from 09/05 states that urine culture was now negative and labs were back to baseline. Also noted "Cleared for surgery". Teaching & Discussion Pre-Anesthesia Teaching/Discussion Notes: Instructed NPO after midnight before surgery, except medications with 15 cc of water. Medication instructions provided according to the PAT guidelines. History Surgery Operation Date: 09/15/18 10:25 Proposed Procedures p L4-L5 Decompression and Fusion, Spinal Cord Monitoring - [place], Height/Weight Height: 5 ft 7 in Weight: 86.8 kg Allergies Allergy/AdvReac Type Severity Reaction Status Date / Time clindamycin Allergy Intermediate RASH Verified 08/13/18 16:06 Penicillins Allergy Intermediate HIVES Verified 08/13/18 16:06 doxycycline AdvReac Severe pancreatiti Verified 08/13/18 16:06 s Medications Home Medications Medication Instructions Recorded Confirmed Last Taken alprazolam 1 mg PO QID PRN 08/13/18 08/13/18 Unknown atorvastatin 80 mg PO HS 08/13/18 08/13/18 Unknown cholecalciferol (vitamin D3) 2,000 unit PO QAM 08/13/18 08/13/18 Unknown [Vitamin D3] clobetasol 1 applic TOPICAL DAILY PRN 08/13/18 08/13/18 Unknown clomipramine [Anafranil] 50 mg PO HS 08/13/18 08/13/18 Unknown duloxetine 120 mg PO QAM 08/13/18 08/13/18 Unknown lamotrigine [Lamictal] 100 mg PO HS 08/13/18 08/13/18 Unknown lansoprazole [Prevacid] 30 mg PO BID 08/13/18 08/13/18 Unknown levothyroxine 50 mcg PO QAM 08/13/18 08/13/18 Unknown lisinopril 5 mg PO QAM 08/13/18 08/13/18 Unknown methylphenidate HCl [Ritalin LA] 40 mg PO QAM 08/13/18 08/13/18 Unknown methylphenidate HCl [Ritalin] 20 mg PO 1200 08/13/18 08/13/18 Unknown montelukast 10 mg PO PM 08/13/18 08/13/18 Unknown oxycodone-acetaminophen 1 tab PO QID PRN 08/13/18 08/13/18 Unknown rizatriptan 10 mg PO UD PRN 08/13/18 08/13/18 Unknown trazodone 200 mg PO HS 08/13/18 08/13/18 Unknown triamcinolone acetonide 1 applic TOPICAL BID PRN 08/13/18 08/13/18 Unknown wheat dextrin [Benefiber Clear SF 1 packet PO DAILY 08/13/18 08/13/18 Unknown (dextrin)] Past Medical History Medical History Agoraphobia Chronic back pain NUMBNESS AND TINGLING RADIATING DOWN LEFT LEG. Essential tremor Fibromyalgia GERD (gastroesophageal reflux disease) History of chronic kidney disease Hyperlipidemia Hypertension Hypothyroidism Interstitial cystitis Migraine Sleep apnea BIPAP WITH SUPPLEMENTAL O2 AT 2L Exercise / Class Metabolic Activity III < 4 Walking/Shop/Light housework (Very limited due to back pain and interstitial cystitis for several years. Able to climb FOS slowly. Denies CP or SOB. ) Past Surgical History Surgical History History of bunionectomy of both great toes History of cholecystectomy History of cystoscopy NUMEROUS TIMES History of hysterectomy History of melanoma excision 15 YEARS AGO History of tonsillectomy Past Anesthesia History No Hx of Anesthesia Complications and No Family Hx of Anesthesia Complications History of PONV No Hx of PONV and No Hx of Motion Sickness Social History Smoking Status: Never smoker Do You Dip or Chew Tobacco: No Hx Alcohol Use: No Alcohol Intake Frequency Comment: 0 Hx Substance Use: No substance use type: does not use Review of Systems Patient denies chest pain, shortness of breath, dyspnea on exertion, wheezing, palpitations. +Joint Pain (Back, Left Leg) +Acid Reflux (Controlled with current medications) +cough (dry cough in evenings, PCP aware) Physical Exam Vital Signs BP: 129/87 P: 88 (234 per machine with gel libyan) R: 18 T: 97.9 SPO2: 85% (unable to get an accurate number due to gel nails with dark libyan. Advised to remove for surgery) ENMT Thyromental Distance: > or= 3.5 Finger Breadths (4) Mallampati Class: I Neck normal visual inspection and trachea midline; neck extension not limited Respiratory normal respiratory effort Auscultation: lungs clear to auscultation bilaterally Cardiovascular Rate/Rhythm: regular rate and regular rhythm Heart Sounds: no murmur Vessels: no carotid bruit Neurologic moves all extremities Psychiatric Orientation: alert and oriented x 3 Testing Laboratory Results 08/19/18 11:28 08/19/18 11:18 08/19/18 08/19/18 08/19/18 11:28 11:28 Unknown PT 9.6 INR 0.9 APTT 23.3 Urine Color Yellow Urine Appearance Clear Urine pH 7.0 Ur Specific [place] 1.019 Urine Protein Negative Urine Glucose (UA) Negative Urine Ketones Negative Urine Nitrite Positive A Ur Leukocyte Esterase Trace H Urine WBC (Auto) 5-10 H Urine RBC (Auto) 0-4 U Hyaline Cast (Auto) 1-5 U Epithel Cells (Auto) 5-10 H Urine Bacteria (Auto) 2+ H Blood Type A Positive Antibody Screen NEGATIVE 08/19/18 Unknown Urine Culture - Preliminary Urine,Clean Catch Gram negative bacilli Surgeon's and PCP's office notified of UTI and abnormal labs. [facility] 09/03/18 WBC: 11.56 H H/H: 13.8/41.6 PLATELETS: 297 SODIUM: 137 POTASSIUM: 4.2 CHLORIDE: 95 L CO2: 25 BUN: 20 CREATININE: 1.2 H GLUCOSE: 108 UA: NEGATIVE Electrocardiogram Date: 08/19/18 Findings: + NSR @ (75) and + no change from (04/20/17)
--- NOTE | 2018-08-19 11:26 | PAT Medication Instructions ---
Medication Instructions Date of Service August 19, 2018 Home Medications atorvastatin 80 mg PO HS cholecalciferol (vitamin D3) [Vitamin D3] 2,000 unit PO QAM clobetasol 1 applic TOPICAL DAILY PRN clomipramine [Anafranil] 50 mg PO HS duloxetine 120 mg PO QAM lamotrigine [Lamictal] 100 mg PO HS lansoprazole [Prevacid] 30 mg PO BID levothyroxine 50 mcg PO QAM losartan 50mg PO QAM methylphenidate HCl [Ritalin LA] 40 mg PO QAM methylphenidate HCl [Ritalin] 20 mg PO 1200 montelukast 10 mg PO PM oxycodone-acetaminophen 1 tab PO QID PRN rizatriptan 10 mg PO UD PRN trazodone 200 mg PO HS triamcinolone acetonide 1 applic TOPICAL BID PRN wheat dextrin [Benefiber Clear SF (dextrin)] 1 packet PO DAILY and 12:00 Continue as directed rizatriptan 10 mg PO UD NEEDED STOP taking 24 hours before surgery clobetasol 1 applic TOPICAL DAILY NEEDED triamcinolone acetonide 1 applic TOPICAL BID PRN DO NOT take the morning of surgery cholecalciferol (vitamin D3) [Vitamin D3] 2,000 unit PO QAM losartan 50mg PO QAM methylphenidate HCl [Ritalin LA] 40 mg PO QAM methylphenidate HCl [Ritalin] 20 mg PO 1200 wheat dextrin [Benefiber Clear SF (dextrin)] 1 packet PO DAILY and 12:00 Take morning of surgery With a small sip of water, OTHERWISE NOTHING TO EAT OR DRINK AFTER MIDNIGHT: duloxetine 120 mg PO QAM lansoprazole [Prevacid] 30 mg PO BID levothyroxine 50 mcg PO QAM oxycodone-acetaminophen 1 tab PO QID PRN (if needed; stop 4 hours before surgery) Take evening before surgery atorvastatin 80 mg PO HS lamotrigine [Lamictal] 100 mg PO HS lansoprazole [Prevacid] 30 mg PO BID montelukast 10 mg PO PM oxycodone-acetaminophen 1 tab PO QID PRN (if needed) trazodone 200 mg PO HS Other Notes If you have any questions please call us at [phone] or [phone] or [phone] or [phone]
[2018-08-19 12:42] LABS: Basophils # (auto) 0.03 K/uL (0-0.2); Basophils % (auto) 0.3 %; Eosinophils # (auto) 0.43 K/uL (0-0.5); Eosinophils % (auto) 3.8 %; Hematocrit (blood only) 39.5 % (37-47); Hemoglobin 13.3 g/dL (12.0-16.0); Immature Granulocytes # (auto) 0.11 K/uL (0.00-0.02); Lymphocytes # (auto) 1.98 K/uL (1.2-3.4); Lymphocytes % (auto) 17.5 %; Mean Corpuscular Hgb Conc 33.7 g/dL (32-36); Mean Corpuscular Volume 88.2 fL (80-100); Mean Platelet Volume 8.7 fL (7.4-10.4); Monocytes # (auto) 0.82 K/uL (0.11-0.59); Monocytes % (auto) 7.2 %; Neutrophils # (auto) 7.97 K/uL (1.4-6.5); Neutrophils % (auto) 70.2 %; Platelet Count 289 K/uL (130-400); RDW Coefficient of Variation 13.5 % (11.5-14.5); RDW Standard Deviation 43.4 fL (36.4-46.3); Red Blood Count 4.48 M/uL (4.2-5.4); White Blood Count 11.34 K/uL (4.8-10.8)
--- NOTE | 2018-08-19 12:42 | XRay Report ---
XR chest Pre-admission PA/Lat HISTORY: Preop. COMPARISON: Chest 04/20/2017. FINDINGS: The lungs are clear. Cardiac silhouette is normal in size. No pleural effusions. No pneumot horax. IMPRESSION: No acute process. Electronically signed by: Travon Padilla M.D. 08/19/2018 12:41 PM
[2018-08-19 12:55] LABS: INR 0.9 (0.9-1.1); Partial Thromboplastin Ratio 0.9; Partial Thromboplastin Time 23.3 Seconds (21.0-31.0); Prothrombin Time 9.6 Seconds (9.0-12.0)
[2018-08-19 13:00] LABS: BUN Creatinine Ratio 13.2 (10-20); Calcium 9.1 mg/dl (8.5-10.1); Creatinine Clr Calc Pharmacy 59.5 ml/min; Est GFR (African American) 63.3; Est GFR (Non-African American) 54.6; Potassium 4.3 mmol/L (3.5-5.1)
[2018-08-19 14:22] LABS: Appearance Urine Clear (Clear); Bacteria Urine Automated 2+ (Negative); Bilirubin Urine Negative (Negative); Blood Urine Negative (Negative); Color Urine Yellow; Glucose Urine UA Negative (Negative); Ketones Urine Negative (Negative); Leukocyte Esterase Urine Trace (Negative); Nitrite Urine Positive (Negative); Protein Urine Negative (Negative); RBC Urine Automated 0-4 /hpf (0-4); Specific Gravity Urine 1.019 (1.000-1.030); Urobilinogen Urine Negative (Negative)
[~2018-09-15 07:00] MED LIST changes: +ACETAMINOPHEN 500 MG TAB PO SCH; -ADVIN50050 INH; -ALBUAER2 INH; -ALPR1TAB3 PO; -ANF50 PO; -ATOR-26 PO; -CHOL1TAB76 PO; -CLC100 PO; -CLMTP25 TOP; -CLOB-65 EXT; -CRFL PO; -CYM60 PO; +CeleBREX 200 MG CAP PO SCH; +GABAPENTIN 300 MG x 2 PO SCH; -HYDR50CA2 PO; -LAMO100T16 PO; -LANS30CA12 PO; -LEVO-217 PO; -LIDOCAINE 5% TOP; -LISI5TAB3 PO; +LR 15ML/HR IV SCH; -METH10TA4 PO; -OXYC7.5T78 PO; -RIZA10TA18 PO; -RTL20 PO; -SNG10 PO; -SUMA5SPR5; -TIOTCAP INH; -TRAZ150T64 PO; -TRIA0.1C20 TOP
[2018-09-15] MEDS ORDERED: VANCOMYCIN CONSULT ACTIVE PRN ×2 (07:47→13:29)
[2018-09-15] MEDS ORDERED: VANCOMYCIN HCL 1 GM/270 ML BAG ONE (07:51)
[2018-09-15] MEDS ORDERED: MIDAZOLAM HCL 1 MG/ML 2ML VIAL ONE (08:17)
[2018-09-15] MEDS ORDERED: fentaNYL citrate 100 MCG/2 ML VIAL ONE ×3 (08:17→09:35)
--- NOTE | 2018-09-15 08:27 | History & Physical Bridge Note ---
Date of Service September 15, 2018 History & Physical Bridge Note I have examined the patient, reviewed the History & Physical and in the interval since the performance of the History & Physical I have noted the following changes of clinical significance: no changes noted
--- NOTE | 2018-09-15 08:28 | History & Physical Report ---
Date of Service September 15, 2018 Assessment & Plan (1) Spinal stenosis, lumbar region with neurogenic claudication: Decompression and fusion L4-5 Present on Admission?: Yes History of Present Illness Chief Complaint: Back and leg pain Primary Care Provider: Kristina Stout MD This is a 63-year-old female that presents with chronic back and leg pain. After failing extensive course of nonoperative care is here for surgical intervention. Allergies Allergy/AdvReac Type Severity Reaction Status Date / Time clindamycin Allergy Intermediate RASH Verified 09/15/18 07:48 Penicillins Allergy Intermediate HIVES Verified 09/15/18 07:48 doxycycline AdvReac Severe pancreatiti Verified 09/15/18 07:48 s Home Medications Home Medications Medication Instructions Recorded Confirmed Type atorvastatin 80 mg PO HS 08/13/18 09/15/18 History cholecalciferol (vitamin D3) 2,000 unit PO QAM 08/13/18 09/15/18 History [Vitamin D3] clobetasol 1 applic TOPICAL DAILY PRN 08/13/18 08/13/18 History clomipramine [Anafranil] 50 mg PO HS 08/13/18 09/15/18 History duloxetine 120 mg PO QAM 08/13/18 09/15/18 History lamotrigine [Lamictal] 100 mg PO HS 08/13/18 09/15/18 History lansoprazole [Prevacid] 30 mg PO BID 08/13/18 09/15/18 History levothyroxine 50 mcg PO QAM 08/13/18 09/15/18 History lisinopril 5 mg PO QAM 08/13/18 09/15/18 History methylphenidate HCl [Ritalin LA] 40 mg PO QAM 08/13/18 09/15/18 History methylphenidate HCl [Ritalin] 20 mg PO 1200 08/13/18 09/15/18 History montelukast 10 mg PO PM 08/13/18 09/15/18 History oxycodone-acetaminophen 1 tab PO QID PRN 08/13/18 08/13/18 History rizatriptan 10 mg PO UD PRN 08/13/18 08/13/18 History trazodone 200 mg PO HS 08/13/18 09/15/18 History triamcinolone acetonide 1 applic TOPICAL BID PRN 08/13/18 08/13/18 History wheat dextrin [Benefiber Clear SF 1 packet PO DAILY 08/13/18 09/15/18 History (dextrin)] Past Med/Surg History Social History Preferred Language: Kazakh Communication Ability: 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
[2018-09-15] MEDS ORDERED: RANITIDINE IV STA (08:31)
[2018-09-15] MEDS ORDERED: DEXTROSE 5% IV STA (08:31)
[2018-09-15] MEDS ORDERED: BUPIVACAINE/EPINEPHRINE 0.5% MPF 1:200,000 30 ML VIAL ONE (08:40)
[2018-09-15] MEDS ORDERED: BACITRACIN INJ 50,000 UNIT VIAL ONE (08:40)
[2018-09-15] MEDS ORDERED: HYDROmorphone INJ 2 MG/ML SYR/VIAL IV PRN (08:51)
[2018-09-15] MEDS ORDERED: ATROPINE SULFATE 0.1 MG/ML 10ML SYR IV PRN (08:51)
[2018-09-15] MEDS ORDERED: ePHEDrine sulfate 50 MG/ML AMP IV PRN (08:51)
[2018-09-15] MEDS ORDERED: HYDROmorphone INJ 2 MG/ML SYR/VIAL ONE ×2 (09:35→10:55)
[2018-09-15] MEDS ORDERED: FLOSEAL HEMOSTATIC MATRIX 10ML TOP ONE (10:54)
[2018-09-15] MEDS ORDERED: ROCURONIUM BROMIDE 10 MG/ML 5 ML VIAL ONE (10:55)
[2018-09-15] MEDS ORDERED: PROPOFOL IV EMULSION 10 MG/ML 20 ML VIAL IV ONE (10:55)
[2018-09-15] MEDS ORDERED: DEXAMETHASONE SOD INJ 4 MG/ML VIAL ONE (10:55)
[2018-09-15] MEDS ORDERED: ePHEDrine sulfate 50 MG/ML SYR ONE (10:55)
[2018-09-15] MEDS ORDERED: LIDOCAINE HCL 2% 2 ML VIAL/AMP(20MG/ML) INFIL ONE (10:55)
[2018-09-15] MEDS ORDERED: PHENYLEPHRINE 100MCG/ML 5ML SYR ONE (10:55)
[2018-09-15] MEDS ORDERED: ePHEDrine sulfate 50 MG/ML AMP ONE (10:55)
[2018-09-15] MEDS ORDERED: GLYCOPYRROLATE 0.2 MG/ML VIAL ONE (10:55)
[2018-09-15] MEDS ORDERED: NEOSTIGMINE METHYLSULFATE 1 MG/ML 10ML VIAL ONE (10:55)
[2018-09-15] MEDS ORDERED: ONDANSETRON INJ 2 MG/ML 2 ML VIAL ONE (10:55)
--- NOTE | 2018-09-15 10:57 | Operative Report ---
Post Operative Report Pre & Post Diagnosis Operation Date: 09/15/18 09:05 Pre-Op Diagnosis: Spinal stenosis, lumbar region with neurogenic claudication Post-Op Diagnosis: Spinal stenosis, lumbar region with neurogenic claudication Procedure Operation Date: 09/15/18 09:05 Actual Procedures #1 lumbar decompression bilateral medial facetectomies foraminotomies L3-4 and L4-5 per #2 posterior spinal fusion L4-5 per #3 interbody fusion L4-5 #5 placement of peek cage 13 x 22 mm at L4-5. #6 placement of local graft in the posterior lateral gutters per #7 placement infuse collagen sponge, master graft in the posterior lateral gutters and ostial amp and interbody space. Surgeon Villa Mayorga DO Bleacher Lard Beth Conklin Estimated Blood Loss 125 Findings Consistent with Post-Op Diagnosis Specimens None Indications This is a 63-year-old female presents with significant leg pain. After failing extensive course of nonoperative care she is here to undergo surgical intervention. Description of Procedure The patient was met with identified and informed consent obtained. Patient was then taken to the operative suite underwent intubation placed in a prone position the Benji table on top of the Deon frame. All bony prominences well-padded eyes inspected to ensure no external pressure placed upon but this point the lumbar spine was prepped and draped in a normal sterile fashion. Sharp dissection with the assistance of Bovie cautery was performed down to and exposing the lamina transverse processes of L4 and L5 bilaterally. From a caudal to cephalad fashion complete laminectomy of L4 partial laminectomy of L3 was performed including bilateral medial facetectomies and foraminotomies addr essing severe stenosis. Pedicle screws were then placed in L4 and L5 bilaterally with assistance of fluoroscopy and the appropriate size jorge placed. By way of a transforaminal approach on the left complete discectomy was performed endplates curetted to subcortical bleeding bone and a 13 x 22 mm peek cage filled with ostium bone graft tapped in position. The rods were then locked in final position bilaterally. The transverse processes of L for an L5 bur to subcortical bleeding bone. Infuse collagen sponge mass graft local autograft placed in the posterior lateral gutters. 15 round HOLLY drain inserted. The incision was then closed with 1 Vicryl in the fascia 2-0 Vicryl substantially and 4 Monocryl for final skin closure. Steri-Strip sterile dressings placed. Patient will continue to PACU stable condition. Please note Beth Conklin present throughout the entire procedure involved the patient positioning portions of the surgery and final skin closure. Lastly spinal cord monitoring was utilized throughout the procedure no changes noted. I attest to the content of the Intraoperative Record and any orders documented therein. Any exceptions are noted below.
--- NOTE | 2018-09-15 11:32 | Fluoroscopy Report ---
FL lumbar spine 2-3V CLINICAL HISTORY: L4-L5 DECOMP/FUSION COMPARISON STUDY: None FLUOROSCOPY TIME: 14 seconds. NUMBER OF FLUOROSCOPIC IMAGES: 2 FINDINGS: 2 intraoperative fluoroscopic spot images reveal postsurgical changes of an L4-5 discectomy and interbody fusion with posterior pedicle screw fixation. IMPRESSION: Postsurgical changes at the L4-5 level. Electronically signed by: Julian Jara M.D. 09/15/2018 11:31 AM
--- NOTE | 2018-09-15 11:57 | Anesthesiology Progress Note ---
Date of Service September 15, 2018 Anesthesia Post Procedure Vital Signs Vital Signs: Temp Pulse Pulse Resp BP Pulse Ox 09/15/18 11:45 93 H 12 137/77 100 09/15/18 11:35 92 H 12 139/75 98 09/15/18 11:25 93 H 12 153/80 H 94 09/15/18 11:15 90 14 171/99 H 100 09/15/18 11:09 36.4 C L 90 12 187/87 H 94 09/15/18 08:36 36.9 C 81 18 135/93 98 Pain Intensity Lower Back: Pain Intensity: 2 Transfer of Care Handoff Completed per policy Notes Mental Status: alert / awake / arousable Patient Amnestic to Procedure: Yes Nausea / Vomiting: adequately controlled Pain: adequately controlled Airway Patency, RR, SpO2: stable & adequate BP & HR: stable & adequate Hydration State: stable & adequate Anesthetic Complications: no major complications apparent
[2018-09-15] MEDS: fentaNYL citrate 100 MCG/2 ML VIAL IV PRN ×4 (11:58→12:39)
[2018-09-15] MEDS ORDERED: ALUMINUM/MAGNESIUM SUSP 30 ML UDC PO PRN (13:29)
[2018-09-15] MEDS ORDERED: METOCLOPRAMIDE HCL INJ 5 MG/ML 2 ML VIAL IV PRN (13:29)
[2018-09-15] MEDS ORDERED: ACETAMINOPHEN 1,000 MG/100 ML VIAL IV PRN (13:29)
[2018-09-15] MEDS ORDERED: ACETAMINOPHEN 500 MG TAB PO PRN (13:29)
[2018-09-15] MEDS ORDERED: BISACODYL 10 MG SUPP PR PRN (13:29)
[2018-09-15] MEDS ORDERED: RIZATRIPTAN BENZOATE 10 MG TAB PO PRN (13:29)
[2018-09-15] MEDS ORDERED: FAMOTIDINE 20 MG TAB PO PRN (13:29)
[2018-09-15] MEDS ORDERED: TRAMADOL HCL 50 MG TABLET PO PRN (13:29)
[2018-09-15] MEDS ORDERED: HYDROmorphone INJ 0.5 MG/0.5 ML SYR IV PRN (13:29)
[2018-09-15] MEDS ORDERED: ONDANSETRON 4 MG TAB PO PRN (13:29)
[2018-09-15] MEDS ORDERED: SOD PHOSPHATE/SOD BIPHOSPHATE ENEMA 132 ML BTL PR PRN (13:29)
[2018-09-15] MEDS ORDERED: MAGNESIUM HYDROXIDE SUSP 30 ML UDC PO PRN (13:29)
[2018-09-15] MEDS ORDERED: DO NOT ADMINISTER FLU VACCINE PRN (13:29)
[2018-09-15] MEDS ORDERED: ONDANSETRON INJ 2 MG/ML 2 ML VIAL IV PRN (13:29)
[2018-09-15] MEDS ORDERED: LORazepam 0.5 MG/1 ML VIAL IV PRN (13:29)
[2018-09-15] MEDS ORDERED: OXYCODONE HCL IR 5 MG TAB (IMMEDIATE RELEASE) PO PRN (13:29)
[2018-09-15] MEDS ORDERED: DO NOT ADMINISTER PNEUMOCOCCAL VACCINE PRN (13:29)
[2018-09-15] MEDS ORDERED: PROMETHAZINE HCL 12.5 MG in SODIUM CHLORIDE 0.9% 50 ML IV PRN (13:29)
[2018-09-15] MEDS: METHYLPHENIDATE HCL 10 MG TABLET PO SCH (15:15)
[2018-09-15] MEDS: LACTATED RINGER'S 1,000 ML IV SCH (15:49)
[2018-09-15] MEDS: KETOROLAC TROMETHAMINE 15 MG/ML VIAL IV SCH ×2 (15:51→21:06)
[2018-09-15] MEDS ORDERED: VANCOMYCIN HCL 1,250 MG in SODIUM CHLORIDE 0.9% 250 ML IV SCH (16:00)
[2018-09-15] MEDS ORDERED: HYDROCODONE/ACETAMOPHEN 5/325MG TAB PO PRN (17:09)
[2018-09-15] MEDS: HYDROCODONE/ACETAMOPHEN 5/325MG TAB PO PRN (17:57)
[2018-09-15] MEDS: LORazepam 0.5 MG TAB PO PRN (19:50)
[2018-09-15] MEDS: lamoTRIgine 100 MG TAB PO SCH (20:55)
[2018-09-15] MEDS: MONTELUKAST SODIUM 10 MG TABLET PO SCH (20:55)
[2018-09-15] MEDS: LANSOPRAZOLE 30 MG SOLTAB PO SCH (20:55)
[2018-09-15] MEDS: TRAZODONE HCL 100 MG TAB PO SCH (20:56)
[2018-09-15] MEDS: DOCUSATE SODIUM/SENNA 50/8.6MG TAB PO SCH (20:56)
[2018-09-15] MEDS: ATORVASTATIN 40 MG TAB PO SCH (20:56)
[2018-09-15] MEDS: CLOMIPRAMINE 50 MG PO SCH (21:10)
[2018-09-16] MEDS: LACTATED RINGER'S 1,000 ML IV SCH ×2 (00:01→04:23)
[2018-09-16] MEDS: HYDROCODONE/ACETAMOPHEN 5/325MG TAB PO PRN ×5 (00:02→19:34)
[2018-09-16] MEDS: LEVOTHYROXINE SODIUM 50 MCG TABLET PO SCH (04:41)
[2018-09-16] MEDS: POLYETHYLENE (MIRALAX) 17 GM PACK PO SCH ×3 (04:41→17:59)
[2018-09-16] MEDS: KETOROLAC TROMETHAMINE 15 MG/ML VIAL IV SCH ×2 (04:43→10:59)
[2018-09-16] MEDS ORDERED: VANCOMYCIN HCL 1,000 MG/270 ML BAG IV SCH (06:00)
[2018-09-16 06:31] LABS: Basophils # (auto) 0.01 K/uL (0-0.2); Basophils % (auto) 0.1 %; Eosinophils # (auto) 0.47 K/uL (0-0.5); Eosinophils % (auto) 4.8 %; Hemoglobin 9.5 g/dL (12.0-16.0); Immature Granulocytes # (auto) 0.05 K/uL (0.00-0.02); Immature Granulocytes % (auto) 0.5 %; Lymphocytes # (auto) 1.01 K/uL (1.2-3.4); Lymphocytes % (auto) 10.4 %; Mean Corpuscular Hgb Conc 33.9 g/dL (32-36); Mean Platelet Volume 8.6 fL (7.4-10.4); Monocytes # (auto) 0.77 K/uL (0.11-0.59); Monocytes % (auto) 7.9 %; Neutrophils # (auto) 7.42 K/uL (1.4-6.5); Neutrophils % (auto) 76.3 %; Platelet Count 205 K/uL (130-400); RDW Coefficient of Variation 13.5 % (11.5-14.5); RDW Standard Deviation 43.6 fL (36.4-46.3); Red Blood Count 3.22 M/uL (4.2-5.4); White Blood Count 9.73 K/uL (4.8-10.8)
[2018-09-16 07:00] LABS: BUN Creatinine Ratio 10.3 (10-20); Calcium 7.7 mg/dl (8.5-10.1); Creatinine Clr Calc Pharmacy 67.5 ml/min; Est GFR (African American) 72.9; Est GFR (Non-African American) 62.9; Potassium 3.9 mmol/L (3.5-5.1)
--- NOTE | 2018-09-16 08:23 | Orthopedic Progress Note ---
Date of Service September 16, 2018 Assessment & Plan (1) Spinal stenosis, lumbar region with neurogenic claudication: This time we will continue physical therapy advance her bowel regiment anticipate discharge home the next few days. Present on Admission?: Yes Subjective Patient's back pain is controlled leg symptoms improved. Physical Exam Physical Exam: On exam she is good strength testing appears comfortable. Results & Data Vital Signs (Past 12 Hours) Vital Signs Temp Pulse Resp BP Pulse Ox 09/16/18 07:54 36.8 C 91 H 18 113/72 96 09/16/18 03:38 37.5 C 92 H 14 114/73 100 09/15/18 22:49 36.5 C 87 14 120/76 99
[2018-09-16] MEDS: DULOXETINE HCL 60 MG CAP PO SCH (08:48)
[2018-09-16] MEDS: LANSOPRAZOLE 30 MG SOLTAB PO SCH ×2 (08:50→20:15)
[2018-09-16] MEDS: CHOLECALCIFEROL 1,000 UNITS TAB PO SCH (08:50)
[2018-09-16] MEDS: LISINOPRIL 5 MG TAB PO SCH (08:53)
[2018-09-16] MEDS ORDERED: WHEAT DEXTRIN PO SCH (09:00)
[2018-09-16] MEDS: METHYLPHENIDATE PO SCH (09:10)
[2018-09-16] MEDS: PATIENT'S OWN CONTROLLED MED SCH (09:11)
[2018-09-16] MEDS ORDERED: Nursing to Pharmacy Communication ONE (12:50)
[2018-09-16] MEDS: METHYLPHENIDATE HCL 10 MG TABLET PO SCH ×3 (13:08→15:03)
[2018-09-16] MEDS: hydroCHLOROthiazide 25 MG TAB PO SCH (16:33)
[2018-09-16] MEDS: LORazepam 0.5 MG TAB PO PRN (19:33)
[2018-09-16] MEDS: CLOMIPRAMINE 50 MG PO SCH (20:13)
[2018-09-16] MEDS: TRAZODONE HCL 100 MG TAB PO SCH (20:14)
[2018-09-16] MEDS: ATORVASTATIN 40 MG TAB PO SCH (20:14)
[2018-09-16] MEDS: lamoTRIgine 100 MG TAB PO SCH (20:14)
[2018-09-16] MEDS: DOCUSATE SODIUM/SENNA 50/8.6MG TAB PO SCH (20:15)
[2018-09-16] MEDS: MONTELUKAST SODIUM 10 MG TABLET PO SCH (20:15)
[2018-09-17] MEDS: HYDROCODONE/ACETAMOPHEN 5/325MG TAB PO PRN ×5 (00:59→23:59)
[2018-09-17] MEDS: POLYETHYLENE (MIRALAX) 17 GM PACK PO SCH ×5 (01:01→23:58)
[2018-09-17] MEDS: LEVOTHYROXINE SODIUM 50 MCG TABLET PO SCH (05:41)
--- NOTE | 2018-09-17 07:25 | Anesthesiology Progress Note ---
Date of Service September 17, 2018 Anesthesia Post Procedure Vital Signs Vital Signs: Temp Pulse Resp BP Pulse Ox 09/17/18 00:25 37.2 C 98 H 14 131/69 99 09/16/18 19:24 103 H 18 137/77 94 09/16/18 15:31 36.8 C 92 H 18 109/73 95 09/16/18 14:32 93 09/16/18 13:59 37.0 C 92 H 16 119/76 98 09/16/18 08:52 134/76 09/16/18 07:54 36.8 C 91 H 18 113/72 96 Pain Intensity Lower Back: Pain Intensity: 8 Notes Mental Status: alert / awake / arousable and participated in evaluation Patient Amnestic to Procedure: Yes Nausea / Vomiting: adequately controlled Pain: adequately controlled Airway Patency, RR, SpO2: stable & adequate BP & HR: stable & adequate Hydration State: stable & adequate Anesthetic Complications: no major complications apparent and Pt Satisfied with anesthetic care
[2018-09-17] MEDS: DULOXETINE HCL 60 MG CAP PO SCH (08:47)
[2018-09-17] MEDS: PATIENT'S OWN CONTROLLED MED SCH (08:48)
[2018-09-17] MEDS: METHYLPHENIDATE PO SCH (08:48)
[2018-09-17] MEDS: LISINOPRIL 5 MG TAB PO SCH (08:49)
[2018-09-17] MEDS: CHOLECALCIFEROL 1,000 UNITS TAB PO SCH (08:49)
[2018-09-17] MEDS: hydroCHLOROthiazide 25 MG TAB PO SCH (08:50)
[2018-09-17] MEDS: LANSOPRAZOLE 30 MG SOLTAB PO SCH ×2 (08:51→21:18)
--- NOTE | 2018-09-17 10:43 | Orthopedic Progress Note ---
Date of Service September 17, 2018 Assessment & Plan (1) Spinal stenosis, lumbar region with neurogenic claudication: This time we will continue physical therapy. We will maintain the HOLLY drain. Anticipate discharge home tomorrow. Present on Admission?: Yes Subjective Patient's back pain is controlled leg symptoms improved. She is tolerating physical therapy nicely. Physical Exam Physical Exam: On exam she is good strength testing appears comfortable. Results & Data Vital Signs (Past 12 Hours) Vital Signs Temp Pulse Resp BP Pulse Ox 09/17/18 08:24 36.8 C 106 H 18 118/72 92 09/17/18 00:25 37.2 C 98 H 14 131/69 99
[2018-09-17] MEDS: METHYLPHENIDATE HCL 10 MG TABLET PO SCH ×2 (11:38→14:19)
[2018-09-17] MEDS: LORazepam 0.5 MG TAB PO PRN (13:06)
[2018-09-17] MEDS: DOCUSATE SODIUM/SENNA 50/8.6MG TAB PO SCH (21:17)
[2018-09-17] MEDS: MONTELUKAST SODIUM 10 MG TABLET PO SCH (21:17)
[2018-09-17] MEDS: lamoTRIgine 100 MG TAB PO SCH (21:18)
[2018-09-17] MEDS: ATORVASTATIN 40 MG TAB PO SCH (21:18)
[2018-09-17] MEDS: TRAZODONE HCL 100 MG TAB PO SCH (21:19)
[2018-09-17] MEDS: CLOMIPRAMINE 50 MG PO SCH (21:20)
[2018-09-18] MEDS: POLYETHYLENE (MIRALAX) 17 GM PACK PO SCH ×2 (06:00→12:25)
[2018-09-18] MEDS: LEVOTHYROXINE SODIUM 50 MCG TABLET PO SCH (06:00)
[2018-09-18] MEDS: HYDROCODONE/ACETAMOPHEN 5/325MG TAB PO PRN ×2 (06:05→11:46)
[2018-09-18] MEDS: METHYLPHENIDATE PO SCH (08:33)
[2018-09-18] MEDS: CHOLECALCIFEROL 1,000 UNITS TAB PO SCH (08:34)
[2018-09-18] MEDS: DULOXETINE HCL 60 MG CAP PO SCH (08:34)
[2018-09-18] MEDS: LISINOPRIL 5 MG TAB PO SCH (08:35)
[2018-09-18] MEDS: hydroCHLOROthiazide 25 MG TAB PO SCH (08:36)
[2018-09-18] MEDS: PATIENT'S OWN CONTROLLED MED SCH (08:37)
[2018-09-18] MEDS: LANSOPRAZOLE 30 MG SOLTAB PO SCH (08:37)
--- NOTE | 2018-09-18 09:50 | Discharge Summary ---
Date of Service September 18, 2018 Admission HPI Per Admitting Provider This is a 63-year-old female that presents with chronic back and leg pain. After failing extensive course of nonoperative care is here for surgical intervention. Principal Diagnosis Lumbar spinal stenosis with neurogenic claudication Discharge Data Allergies Allergy/AdvReac Type Severity Reaction Status Date / Time clindamycin Allergy Intermediate RASH Verified 09/15/18 07:48 Penicillins Allergy Intermediate HIVES Verified 09/15/18 07:48 doxycycline AdvReac Severe pancreatiti Verified 09/15/18 07:48 s Consultations 09/15/18 13:29 Consult Case Management - Discharge Planning Routine Procedures Performed Operation Date: 09/15/18 09:05 Actual Procedures p L4-L5 Decompression and Fusion, Spinal Cord Monitoring(Not Applicable) - Villa Mayorga DO Ordered Studies 09/15/18 10:25 FL fluoroscopy <1hr Routine FL lumbar spine 2-3V Routine Hospital Course (1) Spinal stenosis, lumbar region with neurogenic claudication: Patient underwent lumbar decompression fusion tolerated as well as taken the orthopedic floor postoperative. Postop day and when she was up and ambulating nicely. Progressive postop day #2. HOLLY drain decreasing appropriately. Pain well controlled. Subsequently discharged home. Discharge orders and instructions from the chart for further review. Total Time Total Time Spent Total Time Spent (In Minutes): 20 minutes Discharge Plan Discharge Items Patient Disposition: Home - Self-Care Reason For Visit: Low Back Pain Discharge Diagnosis: Lumbar spinal stenosis Discharge Goals: Improve function Activity: Per 'Additional Instructions' section Non-emergency contact: Primary Care Provider Call non-emergency contact if: you have any medication questions Follow-up/Referrals: Kristina Stout MD [Primary Care Provider] - Diet: Regular Addtl Provider Instructions: ACTIVITY RECOMMENDATIONS: SELF CARE INSTRUCTIONS AFTER THORACIC/LUMBAR FUSIONS 1. You may walk to your tolerance. It is good exercise for your legs and back. Expect some back and intermittent leg aches and pains. 2. You may perform "counter-top" level activities (make a sandwich, bernadine with a project, etc.). 3. No bending or lifting of more than 10 pounds or back twisting of any nature (roll like a log when turning in bed). 4. You may ride in a car for 20-30 minutes at a time. No driving until after your first visit with your doctor. 5. Frequent changes of position and restricting sitting to 30 minutes at a time will help limit the amount of back spasms and stiffness you may experience. 6. You may discontinue the use of ambulatory aids (cane, crutches, etc.) once your strength and confidence allow. 7. You may grain broker the shower and let water strike your incision when you arrive home at least once daily. Do not take a tub bath, sit in a hot tub or go into a swimming pool until after your first recheck in the office. SPECIAL CARE INSTRUCTIONS: VERY IMPORTANT TO READ AND REVIEW A. Your surgical incision has been closed with a cosmetic suture under the skin that will dissolve in about 6 weeks. In 14 days, you can use a pair of clean scissors and cut the suture that is left outside of the skin at the ends of your incision. 1. The small skin tapes can be removed 7 days after surgery if they have not fallen off by that point. 2. You may keep the wound open to air as much as possible to promote healing after post-op day number 5 unless told otherwise by your doctor. 3. If you think the wound looks like it is becoming infected (redness or worsening drainage) and/or you are experiencing fever, chill or worsening back pain and muscle spasms, contact the office so that we may evaluate you as soon as possible. B. Complications are uncommon, but please contact us if you have any signs or symptoms of: 1. wound infection (fever higher than 102.5 degrees F, redness, separation of wound, drainage, or increasing pain from the incision) 2. blood clots in legs (pain, swelling, redness and warmth in legs) 3. urinary tract infection (fever higher than 102.5 degrees F, burning upon urination or increased frequency of urination) 4. nerve problems (inability to walk on your toes or heels, numbness, loss of bowel or bladder control) 5. any other symptoms that concern you C. Please call the office at if you have any concerns or questions about your operation or recovery. D. No smoking! Smoking drastically decreases the chance of a solid fusion. E. Do not take any anti-inflammatory medications (Indocin, Advil, Motrin, Aspirin, Naprosyn, etc.) as these may inhibit the chance of a solid fusion. Tylenol is okay to take for pain. MANAGING PAIN AFTER SPINAL SURGERY 1. Narcotic medication is intended for short-term use and will be provided for surgical pain. Surgical pain usually lasts for a period of 4-6 weeks. Narcotic medication includes Percocet, Vicodin, Darvocet, Tylenol #3 or Lortab. 2. Longer-term pain is more appropriately treated with non-narcotic medication such as Tylenol ES. 3. Muscle spasm is not appropriately treated with narcotics. Muscle relaxers such as Soma, Flexeril or Skelaxin can be used along with Tylenol ES. 4. Remember that we all live with some "aches and pains". This is not unusual or uncommon after an injury or as we get older. a. Back pain is expected and may include muscle spasms for 4 to 6 weeks after surgery. The pain should gradually improve. If the pain worsens for no apparent reason, please contact the office. b. Intermittent leg pain may also be experienced and should not be concerned about unless it worsens for no apparent reason. If so, please contact the office. 5. We will provide appropriate medication within the normal guidelines of their prescribed use. We will also be very cautious and aware of potential abuse and extended duration of patients' medication needs. a. Pain medications are for your comfort and to assist with sleep and rest so that the tissue can heal. They are not provided in order to return to normal activity and should not be used through the day. To do so or worsening pain at night can result from ongoing tissue damage and development of tolerance to the prescribed medicine. 6. Please allow 2-3 days to process refills. Prescriptions will not be mailed but must be picked up at the office. FOLLOW UP VISIT: Keep your scheduled follow-up appointment. Any questions, please call the office at . Prescriptions: New hydrocodone-acetaminophen [Russell] 5-325 mg Tablet 1 - 2 tab PO Q4 PRN (Reason: pain) Qty: 30 RF: 0 tramadol 50 mg Tablet 50 mg PO Q4H PRN (Reason: Pain) Qty: 30 RF: 0 Continued atorvastatin 80 mg Tablet 80 mg PO HS RF: 0 methylphenidate HCl [Ritalin] 20 mg Tablet 20 mg PO 1200 RF: 0 rizatriptan 10 mg Tablet 10 mg PO UD PRN (Reason: Migraine Headache) RF: 0 clobetasol 0.05 % Cream 1 applic TOPICAL DAILY PRN (Reason: PRN) RF: 0 oxycodone-acetaminophen 5-325 mg Tablet 1 tab PO QID PRN (Reason: Pain) RF: 0 triamcinolone acetonide 0.025 % Cream 1 applic TOPICAL BID PRN (Reason: Rash) RF: 0 levothyroxine 50 mcg Tablet 50 mcg PO QAM RF: 0 lansoprazole [Prevacid] 30 mg Capsule,Delayed Release(Dr/Ec) 30 mg PO BID RF: 0 montelukast 10 mg Tablet 10 mg PO PM RF: 0 lisinopril 5 mg Tablet 5 mg PO QAM RF: 0 clomipramine [Anafranil] 50 mg Capsule 50 mg PO HS RF: 0 lamotrigine [Lamictal] 100 mg Tablet 100 mg PO HS RF: 0 methylphenidate HCl [Ritalin LA] 40 mg Capsule,Er Biphasic 50-50 40 mg PO QAM RF: 0 duloxetine 60 mg Capsule,Delayed Release(Dr/Ec) 120 mg PO QAM RF: 0 cholecalciferol (vitamin D3) [Vitamin D3] 2,000 unit Capsule 2,000 unit PO QAM RF: 0 Benefiber Clear SF (dextrin) 3 gram/3.5 gram Powder In Packet 1 packet PO DAILY RF: 0 trazodone 200 mg PO HS RF: 0 Stand-Alone Forms: [facility] Discharge Orders: Discharge Order (Routine); Ordered 09/18/18 Ordered By: Villa Mayorga Admission Data Admit Date/Time: 09/15/18 11:02 Attending Provider: Villa Mayorga Admit Provider: Villa Mayorga Primary Care Provider: Kristina Stout Service: Surgical Services
[2018-09-18] MEDS: METHYLPHENIDATE HCL 10 MG TABLET PO SCH (12:24)
== END 2018-09-18 13:43 | disposition home or self-care (01) | DRG 455 ==
LOC: ASU 07:00 → 3E 11:02